=== PATIENT | female | born 1950 | race Caucasian/White ===

== ENCOUNTER → 2019-03-06 17:26 | Outpatient (CLI) | payer MEDICARE | END | disposition home or self-care (01) | LOC: D.LABREF 17:26 | PROVIDERS: ATTEND Urology | DX: D72.829 Elevated white blood cell count, unspecified (principal) ==

== ENCOUNTER → 2019-04-03 18:05 | Outpatient (CLI) | payer MEDICARE, OTHER | END | disposition home or self-care (01) | LOC: D.LABREF 18:05 | PROVIDERS: ATTEND Urology | DX: D72.829 Elevated white blood cell count, unspecified (principal); R31.9 Hematuria, unspecified ==

== ENCOUNTER → 2019-05-15 20:15 | Outpatient (CLI) | payer MEDICARE, OTHER | END | disposition home or self-care (01) | LOC: D.LABREF 20:15 | PROVIDERS: ATTEND Urology | DX: R82.5 Elevated urine levels of drugs, medicaments and biological substances (principal) ==

== ENCOUNTER → 2019-09-04 18:53 | Outpatient (CLI) | payer MEDICARE, OTHER | END | disposition home or self-care (01) | LOC: D.LABREF 18:53 | PROVIDERS: ATTEND Urology | DX: N39.0 Urinary tract infection, site not specified (principal) ==

== ENCOUNTER 2019-11-02 07:38 | Day surgery (SDC) | payer MEDICARE, OTHER ==
[2019-10-31 10:22] LABS: HEMATOCRIT 45.7 % (36.0-48.0); HEMOGLOBIN 15.3 g/dL (12-16); MCH 30.1 pg (26.0-34.0); MCHC 33.5 g/dL (31.0-37.0); MCV 89.8 fL (80.0-100.0); MEAN PLATELET VOLUME 11.3 fL (7.4-10.4); RBC 5.09 10x6/uL (4.00-5.40); RDW 13.3 % (11.5-14.5); WBC 9.4 10x3/uL (4.8-10.8)
[2019-10-31 10:29] LABS: ANION GAP 14.9 mmol/L (8-16); CALCIUM 9.3 mg/dL (8.5-10.1); CARBON DIOXIDE 25.2 mmol/L (21.0-32.0); CREATININE - SERUM 0.9 mg/dL (0.6-1.3); POTASSIUM - SERUM 4.1 mmol/L (3.5-5.1)
[~2019-11-02] VITALS: Ht 160 cm; Wt 89.8 kg
[2019-11-02 07:29] VITALS: BP 138/65; Ht 160 cm; Wt 89.8 kg
[~2019-11-02 07:38] MED LIST: ALBUTEROL SULF8.5 GM INH; ARMOUR THYROID90 MG PO; BAYER CHEWABLE81 MG PO; GLIMEPIRIDE4 MG PO; MYRBETRIQ50 MG PO; ZYRTEC10 MG PO
--- NOTE | 2019-11-02 10:55 | NUR ---
1035-REC'D FROM SURGERY. AWAKE AND ALERT,VSS,DENIES PAIN. DRESSING TO BACK CDI. SON AT BEDSIDE,CL IN [facility]. REPORTS SHE IS ON [employer] DIET-RERQUEST SHE DRINK WHAT SHE HAS BROUGHT AND EAT WHEN SHE LEAVES.
--- NOTE | 2019-11-02 10:56 | NUR ---
1052-[employer] TO ROOM TO DISCUSS STIMULATOR.
--- NOTE | 2019-11-02 11:48 | NUR ---
1115-[employer] LEFT ROOM. VSS.DENIES PAIN. DRESSING CDI
--- NOTE | 2019-11-02 11:49 | NUR ---
1135-REMOVED IV FROM RIGHT HAND WITH CATH INTACT,DISPOSED INTO SHARPS. COVERED SITE WITH GUAZE,SECURED WITH MEDIPORE TAPE. DENIES PAIN. DRESSING TO BACK CDI.REVIEWED POST OPERATIVE INSTRUCTIONS AND FOLLOW UP APPOINTMENT. VERBALIZED UNDERSTANDING
--- NOTE | 2019-11-02 11:50 | NUR ---
1137-ESCORTED OUT VIA W/C BY VOLUNTEER WITH SON AWAITING TO DRIVE HOME
--- NOTE | 2019-11-02 14:54 | OP ---
PATIENT NAME: DINA LIN MEDICAL RECORD: [id number] :48 LOCATION:D.OPS ADMISSION DATE: SURGEON: CINDY HOUSE MD DATE OF OPERATION: 11/02/2019 SURGEON: Cindy House MD ANESTHESIA: TIVA by Alejandra Sterling CRNA. DIAGNOSES: Urge urinary incontinence, fecal incontinence. PROCEDURE: Axonics, stage I left S3 nerve root. FINDINGS: Left S3 nerve root gave excellent reflex responses with vaginal sensation. ESTIMATED BLOOD LOSS: None. CLINICAL HISTORY: This is a 69-year-old female, who has recurrent urinary tract infections due to diabetes mellitus, urge urinary incontinence and fecal incontinence. She has tried medications for urge urinary incontinence and it has not worked. She comes today for sacral neuromodulation with Axonics. She is allergic to CIPROFLOXACIN. She was given Ancef 2 grams IV automatic transmission mechanic to the OR. DESCRIPTION OF PROCEDURE: The patient was placed in prone position on the OR table. She was then prepped and draped and given IV sedation. Under fluoroscopy, I marked on the sacral skin the location of the S3 foramen and the role of sacral foramen on each side. The skin overlying the S2 foramen was infiltrated with 1% lidocaine with epinephrine. The sacral needles were placed. The left S3 needle worked quite well and we decided to go with the left side. The stylet of the spinal needle was removed and an extra-long stylet was placed. A small stab incision was made at the base of the needle. The needle was then removed, leaving the extra-long stylet in place. The trocar dilator was placed under fluoroscopic guidance. The radiopaque marker on the tip of the sheath was placed between the anterior and posterior surfaces of the sacral bones. The trocar was then removed along with the extra-long stylet, leaving the sheath in place. The 4 channel permanent electrode was then placed with the curve extending laterally. All 4 channels were tested. All 4 channels did have a response. In channels 0 and 1, she felt the stimulation sensation in the vaginal area. In channels 2 and 3, she felt the stimulation more in the rectal areas. She had an excellent jenny and toe flexion responses with these 4 channels. Prior to the patient going into the OR, I had her sit up and marked out a site for the permanent pacemaker in the future. This was marked 4 cm distal to the iliac crest. She is right handed and this was placed under the right iliac crest. This area was infiltrated with local anesthetic and a 1.5 cm incision was made here. The tunneling device was used to bring the distal end of the permanent electrode to this new site near the right iliac crest. Here the permanent electrode was connected to the temporary test electrode. A connecting screw was tightened down using a torque-limiting screwdriver to make the connection. The tunneling device was then used to bring the distal end of the temporary test electrode out through a point on the mid back. Conductivity testing was done and there were no short circuits anywhere. The wound was irrigated out using saline. The 1.5 cm right iliac crest incision was closed OPERATIVE REPORT [id number] DINA LIN using a running subcuticular suture of 4-0 Monocryl. The small stab incision over the S2 skin area was closed using a simple interrupted 4-0 Monocryl suture. Dressings were applied. The patient was then awakened and brought to the preoperative holding area. She will be instructed on the use of the pacemaker by the [employer] human resources representative. I will see her in followup next week to check on her responses. TRANSINT:[id number] Voice Confirmation ID: [id number] DOCUMENT ID: [id number] CINDY HOUSE MD at 1454 CC: [id number] DICTATION DATE: 11/02/19 1041 VOCATIONAL DIRECTOR: 11/02/19 1400 [facility] 11/02/19 [place] [address]
== END 2019-11-02 11:37 | disposition home or self-care (01) ==
LOC: D.OPS 07:38 → D.PAN 09:10 → D.OPS 10:00
PROVIDERS: Anesthesiology; ATTEND Urology
DX: N39.41 Urge incontinence (principal); R15.2 Fecal urgency; E11.9 Type 2 diabetes mellitus without complications; E78.2 Mixed hyperlipidemia; K86.1 Other chronic pancreatitis; N31.9 Neuromuscular dysfunction of bladder, unspecified; R35.0 Frequency of micturition

== ENCOUNTER 2019-11-09 06:38 | Day surgery (SDC) | payer MEDICARE, OTHER ==
[~2019-11-09] VITALS: Ht 160 cm; Wt 89.8 kg
[2019-11-09 07:07] LABS: HEMOGLOBIN 15.2 g/dL (12-16); MCHC 33.8 g/dL (31.0-37.0); MCV 88.8 fL (80.0-100.0); MEAN PLATELET VOLUME 11.3 fL (7.4-10.4); RBC 5.07 10x6/uL (4.00-5.40); RDW 13.1 % (11.5-14.5)
[2019-11-09 07:09] LABS: ANION GAP 14.1 mmol/L (8-16); CALCIUM 9.2 mg/dL (8.5-10.1); CARBON DIOXIDE 24.8 mmol/L (21.0-32.0); CREATININE - SERUM 0.9 mg/dL (0.6-1.3); POTASSIUM - SERUM 3.9 mmol/L (3.5-5.1)
[2019-11-09 07:36] VITALS: BP 134/76; Ht 160 cm; Wt 89.8 kg
--- NOTE | 2019-11-09 11:04 | NUR ---
0844-REC'D FROM SURGERY. AWAKE AND ALERT.VSS. DENIES PAIN.DRESSING TO BACK CDI. IV PATENT TO LEFT HAND AT [facility]. VERY PLEASANT. DRINKING ON DRINK SHE BROUGHT FROM HOME.
--- NOTE | 2019-11-09 11:05 | NUR ---
0910-DISCHARGE CRITERIA MET. REMOVED IV FROM LEFT HAND WITH CATH INTACT. DISPOSED INTO SHARPS. COVERED SITE WITH GUAZE,SECURED WITH MEDIPORE TAPE. VSS. DRESSING TO BACK CDI. DENIES PAIN. AWAITING ON SON TO ARRIVE TO TRANSPORT HOME
--- NOTE | 2019-11-09 11:06 | NUR ---
5816-REVIEWED POST OPERATIVE INSTRUCTIONS AND FOLLOW UP APPOINTMENT.VERBALIZED UNDERSTANDING. CONTINUE TO WAIT FOR SON TO TRAMSPORT HOME.
--- NOTE | 2019-11-09 11:08 | NUR ---
0930-SON HERE TO DRIVE HOME. ESCORTED OUT VIA W/C BY STAFF MEMBER.
--- NOTE | 2019-11-09 11:53 | OP ---
PATIENT NAME: DINA LIN MEDICAL RECORD: [id number] :48 LOCATION:D.OPS ADMISSION DATE: SURGEON: JORGE HOUSE MD DATE OF OPERATION: 11/09/2019 SURGEON: Jorge House MD ANESTHESIA: TIVA by Brooks Cueto CRNA. DIAGNOSES: Urge urinary incontinence, fecal incontinence. PROCEDURE: Axonics stage II. ESTIMATED BLOOD LOSS: None. CLINICAL HISTORY: This is a 69-year-old female, who has recurrent urinary tract infections due to diabetes mellitus, urge urinary incontinence, and fecal incontinence. Medications have not helped. She had a trial of sacral neuromodulation with Axonics on 11/02/2019. She had an outstanding result which was positive. She no longer has any episodes of urinary or fecal incontinence. She feels the stimulation in the vaginal area. She comes now to have the permanent implant placed. SHE IS ALLERGIC TO CIPRO. She was given Ancef radio division lieutenant to the OR. DESCRIPTION OF PROCEDURE: The patient was placed in prone position on the OR table and she was given IV sedation. She was prepped and draped. The previous incision on the right iliac crest region was reopened. The connection between the temporary test director and the permanent electrode was found. This connection was disrupted by unscrewing the locking screw and removing the temporary test director entirely. Through the permanent lead, the pacemaker was attached. A locking screw was tightened down with a torque-limiting screwdriver. A subcutaneous pocket was then made by inserting the blade of an [employer] retractor lateral to the incision just under the skin. The pacemaker was then inserted with the ceramic window facing laterally. The wound was then irrigated out with saline. A 2-layer closure was performed. The subcutaneous fat was brought together using 4-0 Vicryl simple interrupted sutures. Then, a running subcuticular 4-0 Monocryl suture was used to close the incision. Steri-Strips were then applied as well as a dressing. I will see the patient in 1 week's time to check on the wound healing. TRANSINT:[id number] Voice Confirmation ID: [id number] DOCUMENT ID: [id number] JORGE HOUSE MD at 1153 CC: [id number] DICTATION DATE: 11/09/19 0852 HARVEST SUPERVISOR: 11/09/19 1111 [facility] 11/09/19 [facility] [address] [place] [address]
== END 2019-11-09 09:10 | disposition home or self-care (01) ==
LOC: D.OPS 06:38
PROVIDERS: Anesthesiology; ATTEND Urology
DX: N39.41 Urge incontinence (principal); R15.9 Full incontinence of feces